=== PATIENT | female | born 1995 | race American Indian/Alaskan Native ===

== ENCOUNTER 2019-04-13 12:14 | Outpatient (CLI) | payer MEDICAID | END 2019-04-13 15:48 | disposition home or self-care (01) | LOC: LAB 12:14 → TRG 14:50 → LAB 15:48 | PROVIDERS: ATTEND Advanced Practice Midwife | DX: O26.893 Other specified pregnancy related conditions, third trimester (principal); Z67.11 Type A blood, Rh negative; Z3A.28 28 weeks gestation of pregnancy | CPT/HCPCS: 86850; 86900; 86901; 96372; J2790 ==